=== PATIENT | female | born 2005 | race Caucasian/White ===

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

== ENCOUNTER 2025-07-07 16:23 | Emergency (ER) | payer MEDICAID, SELFPAY ==
[2025-07-07 16:25] VITALS: BP 140/84; PULSE 83; RESP 18; TEMP 36.8; O2SAT 98
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
[2025-07-07 17:01] LABS: Abs Immature Grans 0.02 10^3/uL (0.0-0.06); HCT 35.6 % (36.0-46.0); HGB 12.2 g/dL (11.2-15.7); Immature Grans % 0.2 %; MCH 30.0 pg (27.0-33.0); MCHC 34.3 % (32.0-36.0); MCV 88 fL (80-95); MPV 9.4 fL (8.0-11.0); Platelet Count 234 10^3/uL (130-400); RBC 4.06 10^6/uL (3.93-5.22); RDW 12.6 % (11.7-14.6); RDW-SD 40.9 fL; WBC 9.32 10^3/uL (4.4-10.8)
[2025-07-07 17:18] LABS: ALT 22 U/L (14-59); AST 19 U/L (15-37); Albumin 4.1 g/dL (3.4-5.0); Alkaline Phosphatase 75 U/L (46-116); Anion Gap 9.7 mmol/L (3-11); BUN 7 mg/dL (7-18); Bilirubin, Total 0.7 mg/dL (0.2-1.0); CO2 25.3 mmol/L (21.0-32.0); Calcium 8.6 mg/dL (8.5-10.1); Chloride 104 mmol/L (98-107); Estimated GFR 93.86 (mL/min/1.73m2); Glucose 82 mg/dL (74-106); Potassium 3.6 mmol/L (3.5-5.1); Sodium 139 mmol/L (136-145); TSH (W/Ref FT4) 1.04 uIU/mL (0.36-3.74); Total Protein 7.4 g/dL (6.4-8.2); Troponin I 5 ng/L (<or=51)
[2025-07-07] MEDS: Diph,Pertuss(Acell),Tet Vac/Pf 0.5 ML SYR IM (17:22)
[2025-07-07] MEDS: Acetaminophen 500 MG TAB 1000 MG PO (17:23)
[2025-07-07] MEDS: Normal Saline 1,000 ML 1000 ML IV (17:24)
[2025-07-07 18:21] LABS: Troponin I 4 ng/L (<or=51)
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
[2025-07-07 19:06] VITALS: BP 125/95; PULSE 73; RESP 16; TEMP 36.9; O2SAT 96
== END 2025-07-07 19:06 | disposition home or self-care (01) ==
PROVIDERS: Emergency Provider Student in an Organized Health Care Education/Training Program; PCP Nurse Practitioner Pediatrics
DX: S50.12XA Contusion of left forearm, initial encounter (principal); V49.3XXA Car occupant (driver) (passenger) injured in unspecified nontraffic accident, initial encounter
CPT/HCPCS: 99284 ×2; 36415; 81025; 90471; 80053; 90715; 96360; 73090; 73130; 73630; 84443; 84484; 85025

== ENCOUNTER 2025-09-21 14:09 | Outpatient (REF) | payer MEDICAID, SELFPAY ==
[2025-09-23 13:28] LABS: Chlamydia Result Negative (Negative); GC Result Negative (Negative)
== END 2025-09-21 14:10 | disposition home or self-care (01) ==
LOC: LBN 14:09
PROVIDERS: PCP Nurse Practitioner Pediatrics; Referring Provider Nurse Practitioner Pediatrics; Visit Provider Nurse Practitioner Pediatrics
DX: Z11.3 Encounter for screening for infections with a predominantly sexual mode of transmission (principal)
CPT/HCPCS: 87491; 87591